=== PATIENT | female | born 1980 | race Caucasian/White ===

== ENCOUNTER 2022-06-16 09:23 | Outpatient (CLI) | payer MEDICARE, MEDICAID, SELFPAY | END 2022-06-16 09:24 | disposition home or self-care (01) | PROVIDERS: Visit Provider Internal Medicine | DX: R50.9 Fever, unspecified (principal); R10.9 Unspecified abdominal pain | CPT/HCPCS: A0425; A0427 ==

== ENCOUNTER 2023-03-16 13:00 | Outpatient (RCR) | payer MEDICARE, MEDICAID, SELFPAY ==
[2023-02-15 14:16] VITALS: BP 113/60; PULSE 89; RESP 16; TEMP 36.8; O2SAT 100
--- NOTE | 2023-02-24 11:25 | ONC.NURNOTE ---
Dx: Skilled Nursing use of medications, Lung Transplant
== END 2023-08-14 23:59 | disposition home or self-care (01) ==
LOC: CCIC 13:00
PROVIDERS: Visit Provider Clinical Nurse Specialist
DX: Z79.899 Other long term (current) drug therapy (principal); Z94.2 Lung transplant status
CPT/HCPCS: 36589; 99211; A4221